=== PATIENT | female | born 1995 | race Hispanic/Latino ===

== ENCOUNTER 2017-01-01 15:30 | Emergency (ER) | payer MEDICAID, OTHER ==
[2017-01-01 15:45] VITALS: BMI 31.1
[2017-01-01] MEDS ORDERED: Sodium Chloride 0.9% 1,000 ML IV ONE (15:59)
[2017-01-01] MEDS ORDERED: guaiFENesin 100 mg/5 ml Syrup UD PO STA (15:59)
[2017-01-01] MEDS ORDERED: Sodium Chloride 0.9% 1,000 ML ONE (16:36)
[2017-01-01] MEDS ORDERED: guaiFENesin 100 mg/5 ml Syrup UD ONE (16:36)
[2017-01-01 16:39] LABS: BASO % 0.2 % (0.0-2.0); EOS # 0.1 K/uL (0.0-0.7); EOS % 1.4 % (0.0-4.0); HEMATOCRIT 37.3 % (34.0-47.0); LYMPH # 1.8 K/uL (1.0-4.3); MEAN CELL VOLUME 89.8 fL (81.0-99.0); MEAN CORPUSCULAR HEMOGLOBIN 30.4 pg (27.0-31.0); MEAN CORPUSCULAR HGB CONC 33.8 g/dL (33.0-37.0); MEAN PLATELET VOLUME 8.8 fL (7.2-11.7); MONO # 0.8 K/uL (0.0-0.8); MONO % 8.1 % (0.0-10.0); RED CELL DISTRIBUTION WIDTH 12.9 % (11.5-14.5); WHITE BLOOD COUNT 9.4 K/uL (4.8-10.8)
[2017-01-01 16:43] LABS: CHLORIDE 101 mmol/L (98-107); POTASSIUM 3.8 mmol/L (3.6-5.2); SODIUM 139 mmol/L (132-148)
[2017-01-01 16:45] LABS: ALB/GLOB RATIO 1.2 (1.0-2.1); AST/SGOT 33 U/L (14-36); BILIRUBIN,TOTAL 1.1 mg/dL (0.2-1.3); CARBON DIOXIDE 29 mmol/L (22-30); GFR AFRICAN-AMERICAN > 60; TOTAL PROTEIN 7.7 g/dL (6.3-8.3)
[2017-01-01 16:46] LABS: ALCOHOL SERUM < 10 mg/dl (0-10); ALKALINE PHOSPHATASE 63 U/L (38-126); ALT/SGPT 77 U/L (9-52); BLOOD UREA NITROGEN 13 mg/dL (7-17); CALCIUM 9.3 mg/dl (8.6-10.4); GLUCOSE,RANDOM 99 mg/dL (65-105)
[2017-01-01 16:49] LABS: RBC URINE 5 /hpf (0-3); URINE BILIRUBIN NEGATIVE (NEGATIVE); URINE BLOOD NEGATIVE (NEGATIVE); URINE COLOR Yellow (YELLOW); URINE GLUCOSE (UA) NORMAL (Normal); URINE KETONE NEGATIVE (NEGATIVE); URINE LEUKOCYTE ESTERASE 2+ Leu/uL (Negative); URINE PROTEIN NEGATIVE (NEGATIVE); URINE UROBILINOGEN NORMAL mg/dL (0.2-1.0); WBC URINE 9 /hpf (0-5)
--- NOTE | 2017-01-01 17:15 | C.PDOC ---
History Of Present Illness 21 year old patient presents to the emergency department complaining of a dry, nonproductive cough and a near syncopal episode at work today. Patient has had many prior visits to the ER for similar symptoms. She reports she smokes half a pack of cigarettes a week. She has 2 children at home. Patient denies any other complaints at this time. Time Seen by Provider: 01/01/17 15:49 Chief Complaint (Nursing): Chest Pain History Per: Patient History/Exam Limitations: no limitations Onset/Duration Of Symptoms: Hrs (today) Current Symptoms Are (Timing): Still Present Context: Other Severity: Mild Pain Scale Rating Of: 3 Quality: Other Exacerbating Factors: None Alleviating Factors: None Recent travel outside of the [place]: No Past Medical History Reviewed: Historical Data, Nursing Documentation, Vital Signs Vital Signs: Last Vital Signs Temp 98.5 F 01/01/17 17:28 Pulse 82 01/01/17 17:28 Resp 18 01/01/17 17:28 BP 126/82 01/01/17 17:28 Pulse Ox 99 01/01/17 18:00 - [facility] Procedures DELIVERY OF PRODUCTS OF CONCEPTION, EXTERNAL APPROACH (04/17/16) REPAIR PERINEUM SKIN, EXTERNAL APPROACH (04/17/16) Family History: States: Unknown Family Hx - Social History Hx Tobacco Use: Yes Hx Alcohol Use: Yes Hx Substance Use: No - Immunization History Hx Tetanus Toxoid Vaccination: No Hx Influenza Vaccination: No Hx Pneumococcal Vaccination: No Review Of Systems Except As Marked, All Systems Reviewed And Found Negative. Constitutional: Negative for: Fever Respiratory: Positive for: Cough (dry, nonproductive). Negative for: Shortness of Breath Neurological: Positive for: Other (near syncope). Negative for: Headache, Dizziness Physical Exam - Physical Exam Appears: Non-toxic, No Acute Distress Skin: Warm, Dry Head: Atraumatic, Normacephalic Eye(s): bilateral: Normal Inspection, PERRL, EOMI, Other ((-)nystagmus) Ear(s): Bilateral: Normal Nose: Normal Oral Mucosa: Moist Throat: Normal Neck: Normal ROM, Supple Chest: Symmetrical Cardiovascular: Rhythm Regular Respiratory: Normal Breath Sounds, No Rales, No Rhonchi, No Wheezing Gastrointestinal/Abdominal: Soft, No Tenderness Back: Normal Inspection, No CVA Tenderness Extremity: Normal ROM Neurological/Psych: Oriented x3, Normal Speech, Normal Cognition Gait: Steady ED Course And Treatment - Laboratory Results Result Diagrams: 01/01/17 16:32 01/01/17 16:32 Lab Interpretation: Normal (ua, tox neg.) Urine POC: Negative ECG: Interpreted By Me ECG Rhythm: Sinus Tachycardia ECG Interpretation: Normal, Abnormal Rate From EC O2 Sat by Pulse Oximetry: 99 (room air) Pulse Ox Interpretation: Normal - Radiology CXR: Interpreted by Me CXR Interpretation: Yes: No Acute Disease Progress Note: Plan: EKG, Labs, Chest x-ray, Robitussin, IV fluids Reevaluation Time: 17:15 Reassessment Condition: Improved Medical Decision Making Medical Decision Making: many prior dramatic presentations and HPI with normal presentations and evals [address] neg, latest 08/18- repeat deferred with normal exam. normal presentation today ? mild viral syndrome with vasovagal symptoms- conflicting stores of syncope vs near syncope, but h/o same for many years OTC cold meds and smoking cessation educated. Disposition Doctor Will See Patient In The: Office Counseled Patient/Family Regarding: Studies Performed, Diagnosis - Disposition Referrals: Jenaro Sandoval MD [Medical Doctor] - Disposition: HOME/ ROUTINE Disposition Time: 17:18 Condition: GOOD Additional Instructions: continue OTC flu/cold medicines as needed Stop smoking cigarettes. Keep well hydrated during Summer months. Follow-up with your PMD as needed labs and CXR normal today. Instructions: How to Stop Smoking (ED), Syncope (ED), Secondhand Smoke Exposure in Children (ED), Viral Syndrome (ED), Dizziness (ED) - Clinical Impression Clinical Impression: Cough, Near syncope - Scribe Statement The provider has reviewed the documentation as recorded by the Scribe Kate Eubanks Provider Attestation: All medical record entries made by the Scribe were at my direction and personally dictated by me. I have reviewed the chart and agree that the record accurately reflects my personal performance of the history, physical exam, medical decision making, and the department course for this patient. I have also personally directed, reviewed, and agree with the discharge instructions and disposition.
--- NOTE | 2017-01-01 17:18 | RAD ---
HISTORY: cough x 2 days COMPARISON: Chest x-ray performed 05/03/13 TECHNIQUE: Chest PA and lateral FINDINGS: LUNGS: No focal consolidation. Please note that chest x-ray has limited sensitivity for the detection of pulmonary masses. PLEURA: No significant pleural effusion identified. No definite pneumothorax . CARDIOVASCULAR: The cardiomediastinal silhouette appears within normal limits of size. OSSEOUS STRUCTURES: No acute osseous abnormality identified. VISUALIZED UPPER ABDOMEN: Unremarkable. OTHER FINDINGS: None. IMPRESSION: No focal consolidation, significant pleural effusion, or definite pneumothorax identified.
[2017-01-01 17:30] VITALS: BP 126/82; PULSE 82; RESP 18; TEMP 98.5
[2017-01-01 18:01] VITALS: O2SAT 99
--- NOTE | 2017-01-02 19:20 | CARD ---
APPROVED REPORT EKG Measurement Heart [id number] <Conclusion> Sinus tachycardia Possible Left atrial enlargement Borderline ECG
== END 2017-01-01 17:29 | disposition home or self-care (01) ==
LOC: C.ER 15:30
DX: R55 Syncope and collapse (principal); R05 Cough
CPT/HCPCS: 71020; 80053; 80320; 80324; 80345; 80346; 80349; 80353; 80358; 80361; 81001; 83992; 84484; 84703; 85025; 85378; 93005; 96360; 99284; J7040

== ENCOUNTER 2018-11-01 08:44 | Emergency (ER) | payer MEDICAID, OTHER ==
[2018-11-01 09:01] VITALS: BMI 35.6
[2018-11-01 09:04] VITALS: BP 122/83; PULSE 88; RESP 18; TEMP 98.8; O2SAT 96
--- NOTE | 2018-11-01 10:24 | C.PDOC ---
History Of Present Illness Patient is a 23 year old female with no past medical history who presents with complaints of 3 days of abdominal pain, nausea, and vomiting. She says she feels nauseas "70% of the day" and vomits after eating meals. She has been eating [employer] because she works there. She says the vomit is nonbloody, nonbilious. She denies fevers, chills, sick contacts. Her LMP was 09/23/18, is sexually active with a male partner, does not take control and occasionally uses condoms. She has not taken an at-home test. She currently denies dysuria, hematuria, change sin BM, constipation, diarrhea, blood in stool, vaginal pain, vaginal bleeding, vaginal discharge, foul odor, itching, fevers, chills, chest pain, palpitations, sob. PMD: none PMHx/SurgHx/FamHx/ Meds: denies Allergies: NKDA OBHx: , vaginal delivery x3 Time Seen by Provider: 11/01/18 09:17 Chief Complaint (Nursing): Abdominal Pain Past Medical History Vital Signs: Last Vital Signs Temp 98.8 F 11/01/18 09:01 Pulse 88 11/01/18 09:01 Resp 18 11/01/18 09:01 BP 122/83 11/01/18 09:01 Pulse Ox 96 11/01/18 09:01 - [facility] Procedures DELIVERY OF PRODUCTS OF CONCEPTION, EXTERNAL APPROACH (04/17/16) REPAIR PERINEUM SKIN, EXTERNAL APPROACH (04/17/16) Family History: States: Unknown Family Hx - Social History Hx Tobacco Use: Yes Hx Alcohol Use: No (pt denies) Hx Substance Use: No - Immunization History Hx Tetanus Toxoid Vaccination: No Hx Influenza Vaccination: No Hx Pneumococcal Vaccination: No Review Of Systems Constitutional: Negative for: Fever, Chills, Weakness Cardiovascular: Negative for: Chest Pain, Palpitations Respiratory: Negative for: Shortness of Breath Gastrointestinal: Positive for: Nausea, Vomiting, Abdominal Pain. Negative for: Diarrhea, Constipation, Melena, Hematochezia, Hematemesis Genitourinary: Negative for: Dysuria, Frequency, Incontinence, Hematuria, Vaginal Discharge, Vaginal Bleeding, Pelvic Pain Physical Exam - Physical Exam Appears: Well, Non-toxic, No Acute Distress Skin: Normal Color, Warm, Dry, No Rash Head: Normacephalic Eye(s): bilateral: EOMI Lymphatic: No Inguinal Node Tenderness Gastrointestinal/Abdominal: Bowel Sounds, Soft, Tenderness (b/l pelvic pain with palpation), No Mass, No Distention, No Guarding ED Course And Treatment O2 Sat by Pulse Oximetry: 96 Medical Decision Making Medical Decision Making: Ordered urine test and urinalysis. Urine test was positive. Patient was instructed to establish care in [facility] at [facility] for continue care and care. Disposition - Disposition Referrals: [facility] at [facility] [Outside] Disposition: HOME/ ROUTINE Disposition Time: 10:23 Condition: STABLE Additional Instructions: Please follow up with [facility] at [facility] and with OB for continued care. If symptoms worsen or reoccur, please return to the nearest ER. Instructions: Care Forms: [facility] (Bulgarian) - Clinical Impression Clinical Impression:
== END 2018-11-01 10:45 | disposition home or self-care (01) ==
LOC: C.ER 08:44
DX: O26.899 Other specified pregnancy related conditions, unspecified trimester (principal); Z3A.00 Weeks of gestation of pregnancy not specified; R10.9 Unspecified abdominal pain